=== PATIENT | female | born 1955 | race Hispanic/Latino ===

== ENCOUNTER 2024-04-09 20:33 | Emergency (ER) | payer MEDICARE ==
[~2024-04-09] VITALS: Ht 152.4 cm; Wt 39.5 kg
[~2024-04-09 20:33] MED LIST: CEPHALEXIN500 MG PO; IBUPROFEN600 MG PO
[2024-04-09 20:59] VITALS: PULSE 85; RESP 19; TEMP 99; O2SAT 100
[2024-04-09] MEDS: FLUORESCEIN SOD(OPTH) 1 MG STRP OP ONE (21:08)
[2024-04-09] MEDS: TETRACAINE HCL 0.5% OPTH SOLN 4 ML BTL OP ONE (21:08)
[2024-04-09] MEDS ORDERED: CILOXAN3.5 GM OS (21:13)
[2024-04-09] MEDS ORDERED: ULTRAM 50MG50 MG PO (21:13)
== END 2024-04-09 21:24 | disposition home or self-care (01) ==
LOC: ER 20:38
DX: S05.02XA Injury of conjunctiva and corneal abrasion without foreign body, left eye, initial encounter (principal); F41.9 Anxiety disorder, unspecified; F32.A Depression, unspecified; Z98.84 Bariatric surgery status
CPT/HCPCS: 99283

== ENCOUNTER 2024-05-12 23:13 | Emergency (ER) | payer MEDICARE ==
[~2024-05-12] VITALS: Ht 160 cm; Wt 39.5 kg
[~2024-05-12 23:13] MED LIST changes: +CILOXAN3.5 GM OS; +ULTRAM 50MG50 MG PO
[2024-05-13 02:47] VITALS: PULSE 76; RESP 16; TEMP 98.3; O2SAT 100
== END 2024-05-13 02:40 | disposition home or self-care (01) ==
LOC: ER 23:40
DX: S60.222A Contusion of left hand, initial encounter (principal); S80.01XA Contusion of right knee, initial encounter; S00.532A Contusion of oral cavity, initial encounter; W01.0XXA Fall on same level from slipping, tripping and stumbling without subsequent striking against object, initial encounter; Y93.01 Activity, walking, marching and hiking; Y92.89 Other specified places as the place of occurrence of the external cause; F41.9 Anxiety disorder, unspecified; F32.A Depression, unspecified; G47.419 Narcolepsy without cataplexy; Z98.84 Bariatric surgery status
CPT/HCPCS: 70450; 70486; 99283

== ENCOUNTER → 2024-07-21 | Outpatient (REF) | payer MEDICARE ==
[~2024-07-21] MED LIST changes: +IOPAMIDOL 370 MG/ML 100 ML INFUS..BTL INJ ONE
[2024-07-21 15:12] LABS: CREATININE, SERUM 0.68 mg/dL (0.57-1.11)
== END ==
LOC: EEVIPCON 07-13 14:00 → CT 14:31
PROVIDERS: ATTEND Internal Medicine Gastroenterology
DX: R10.84 Generalized abdominal pain (principal); R63.4 Abnormal weight loss
CPT/HCPCS: 36415; 74177; 82565; 84520; Q9967

== ENCOUNTER → 2024-09-03 | Outpatient (REF) | payer MEDICARE ==
[~2024-09-03] MED LIST changes: -IOPAMIDOL 370 MG/ML 100 ML INFUS..BTL INJ ONE
== END ==
LOC: DX 08:22
PROVIDERS: ATTEND Nurse Practitioner
DX: R10.84 Generalized abdominal pain (principal); K21.9 Gastro-esophageal reflux disease without esophagitis
CPT/HCPCS: 74250

== ENCOUNTER → 2025-05-10 | Outpatient (REF) | payer MEDICARE | LOC: DX 07:58 | PROVIDERS: ATTEND Nurse Practitioner | DX: K52.9 Noninfective gastroenteritis and colitis, unspecified (principal); Z86.0100 Personal history of colon polyps, unspecified | CPT/HCPCS: 74250 ==

== ENCOUNTER → 2025-06-21 | Day surgery (SDC) | payer MEDICARE ==
[2025-06-16 11:25] LABS: BASOPHILS % 1.1 % (0.0-1.0); EOSINOPHILS % 1.5 % (0.0-6.0); LYMPHOCYTES % 17.6 % (18.0-39.1); MONOCYTES % 10.7 % (4.4-11.3); NEUTROPHILS % 68.8 % (38.7-80.0); RED CELL DISTRIBUTION WIDTH 18.6 % (11.7-14.4)
[~2025-06-21] MED LIST changes: +COLESTIPOL HCL1 GM PO; +GLUCAGON FOR INJ 1 MG VIAL ONE; +INGREZZA80 MG PO; +LAMICTAL100 MG PO; +LIDOCAINE HCL 2% LOCAL INJ 5 ML SDV VIAL INJ ONE; +OLANZAPINE5 MG PO; +ONE A DAY PO; +ONE DAILY COMP1 EACH PO; +PROPOFOL IV EMULSION 50 ML IV ONE; +PROPRANOLOL HCL10 MG PO; +RITALIN20 MG PO; +TRAZODONE HCL50 MG PO
[2025-06-21] MEDS: LACTATED RINGER'S 1,000 ML ONE (06:45)
[2025-06-21 08:54] VITALS: TEMP 97.1
[2025-06-21 09:15] VITALS: BP 126/79; PULSE 68; RESP 18; O2SAT 98
[2025-06-21 09:59] LABS: CDIFF AG QUIK CHEK NEGATIVE (NEGATIVE); CDIFF TOX QUIK CHEK NEGATIVE (NEGATIVE)
[2025-06-25 15:14] LABS: ENDOMYSIAL ANTIBODIES, IGA Negative (Negative); TISSUE TRANSGLUTAMINASE IGA AB <2 U/mL (0-3)
== END | disposition home or self-care (01) ==
LOC: OR 06:08
PROVIDERS: ATTEND Internal Medicine Gastroenterology
DX: K29.70 Gastritis, unspecified, without bleeding (principal); Z86.0100 Personal history of colon polyps, unspecified; K52.9 Noninfective gastroenteritis and colitis, unspecified; Z98.84 Bariatric surgery status; K62.89 Other specified diseases of anus and rectum; K64.8 Other hemorrhoids; M54.2 Cervicalgia; G47.419 Narcolepsy without cataplexy; F41.9 Anxiety disorder, unspecified; F31.9 Bipolar disorder, unspecified; Z88.2 Allergy status to sulfonamides; Z01.810 Encounter for preprocedural cardiovascular examination; Z01.812 Encounter for preprocedural laboratory examination; Z79.1 Long term (current) use of non-steroidal anti-inflammatories (NSAID); Z79.899 Other long term (current) drug therapy
CPT/HCPCS: 36415; 43239; 45380; 82784; 83516; 83630; 83993; 85025; 86140; 86256; 87045; 87177; 87324; 87328; 87449; 88305; 88342; 93005; J1610; J2003; J2470; J2704; J7121; 45378